=== PATIENT | female | born 1945 | race Caucasian/White ===

== ENCOUNTER → 2018-12-31 | Outpatient (CLI) | payer MEDICARE ==
--- NOTE | 2018-12-31 14:38 | RAD ---
EXAM: Pelvic sonogram. HISTORY: Pain. Ovarian cyst. TECHNIQUE: Transabdominal and transvaginal sonographic imaging of the pelvis was performed. COMPARISON: CT dated 12/18/2018. FINDINGS: The uterus measures 13.4 x 6.3 x 5.6 cm. The endometrial stripe is obscured. There is increased echogenicity within the region of the endometrium. There is a 3.6 cm right ovarian cyst. This is simple in appearance. The ovaries are otherwise unremarkable. There is no pelvic free fluid. IMPRESSION: 1. 3.6 cm simple appearing right ovarian cyst. Given the postmenopausal status the patient, sonographic follow-up and correlation with a CA-125 serum tumor marker level may be helpful to exclude a cystic neoplasm. 2. Indistinct endometrial stripe. There is increased echogenicity within the region of the endometrium, without evidence of calcification on the recent CT. Electronically signed by: Sushma Sands MD (12/31/2018 2:35 PM) [id number]
== END | disposition home or self-care (01) ==
LOC: US 12:32
PROVIDERS: ATTEND Nurse Practitioner Family
DX: N83.291 Other ovarian cyst, right side (principal); Z78.0 Asymptomatic menopausal state
CPT/HCPCS: 76830; 76856

== ENCOUNTER → 2019-05-21 | Outpatient (CLI) | payer MEDICARE ==
--- NOTE | 2019-05-21 14:27 | RAD ---
EXAM: Bilateral knees, standing view; left knee, 2 views. HISTORY: Pain. COMPARISON: None. FINDINGS: A frontal standing view both knees and lateral and sunrise views of the LEFT knee are obtained. There is a right knee arthroplasty in expected position. There is left medial compartment joint space narrowing with subchondral sclerosis and marginal osteophytosis. There is also mild left patellar spurring and slight enthesopathy along the superior patella. There is no fracture, dislocation or subacute fixation. There is no joint effusion. IMPRESSION: 1. Severe left medial and mild left patellofemoral compartment osteoarthritis. 2. Right knee arthroplasty. Electronically signed by: Sushma Sands MD (05/21/2019 2:23 PM) [id number]
== END | disposition home or self-care (01) ==
LOC: RAD 13:04
PROVIDERS: ATTEND Orthopaedic Surgery
DX: M17.12 Unilateral primary osteoarthritis, left knee (principal); M77.8 Other enthesopathies, not elsewhere classified; Z96.651 Presence of right artificial knee joint
CPT/HCPCS: 73560; 73565